=== PATIENT | male | born 1950 | race Caucasian/White ===

== ENCOUNTER 2023-06-06 11:54 | Emergency (ER) | payer OTHER ==
[~2023-06-06] VITALS: Ht 172.7 cm; Wt 86.2 kg
[2023-06-06] MEDS ORDERED: SYMPROIC0.2 MG PO (12:19)
[2023-06-06] MEDS ORDERED: NIFEDIPINE20 MG PO (12:20)
[2023-06-06] MEDS ORDERED: ADCIRCA20 MG PO (12:20)
[2023-06-06] MEDS ORDERED: ATORVASTATIN CA10 MG PO (12:21)
[2023-06-06] MEDS ORDERED: BENZONATATE100 MG PO (12:21)
[2023-06-06 15:02] LABS: ABG PH 7.465 (7.35-7.45); ABG PO2 74.9 mmHg (80-100); ABG pCO2 38.4 mmHg (35-45); BASE EXCESS 2.6 mmol/l; BICARBONATE 26.4 mmol/l (23-25); SaO2 95.7 %; Tco2 27.6 mmol/l
[2023-06-06 15:03] LABS: allen test SATISFACTORY; o2 21 %; puncture site RADIAL RIGHT
[2023-06-06 15:17] LABS: HEMATOCRIT 39.3 % (39.0-48.0); HEMOGLOBIN 13.2 g/dL (13-16.00); MEAN CELL VOLUME 97.3 fL (80.0-100.00); MEAN CORPUSCULAR HEMOGLOBIN 32.6 pg (27.00-32.0); MEAN CORPUSCULAR HGB CONC 33.6 g/dl (32.0-36.0); PLATELET COUNT 200 K/uL (150-450); RED BLOOD COUNT 4.04 M/uL (4.00-6.00); RED CELL DISTRIBUTION WIDTH 14.8 % (11.5-14.5)
[2023-06-06 15:47] LABS: ALBUMIN 3.7 gm/dL (3.4-5.0); BILIRUBIN TOTAL 1.16 mg/dL (0.3-1.2); CALCIUM 9.4 mg/dL (8.5-10.1); CREATININE SERUM 1.2 mg/dL (0.70-1.30); GFR 59.51; GLOBULINA 3.9 G/DL (2.4-3.5); POTASSIUM 3.68 mEq/L (3.5-5.1); TOTAL PROTEIN 7.6 gm/dL (6.4-8.2)
== END 2023-06-06 18:53 | disposition home or self-care (01) ==
LOC: ER 11:55
DX: J22 Unspecified acute lower respiratory infection (principal); E78.00 Pure hypercholesterolemia, unspecified; I10 Essential (primary) hypertension; J98.01 Acute bronchospasm; Z20.822 Contact with and (suspected) exposure to COVID-19
CPT/HCPCS: 36415; 71046; 71250; 82803; 94640; 96365; 99284; J0696